=== PATIENT | female | born 1970 | race Hispanic/Latino ===

== ENCOUNTER 2017-01-21 13:56 | Emergency (ER) | payer MEDICARE, MEDICAID ==
[2017-01-21 14:11] VITALS: BMI 21.2
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
[2017-01-21 15:04] LABS: BASO % 0.3 % (0.0-2.0); EOS % 0.2 % (0.0-4.0); HEMATOCRIT 36.6 % (34.0-47.0); LYMPH # 1.5 K/uL (1.0-4.3); LYMPH % 20.5 % (20.0-40.0); MEAN CELL VOLUME 94.5 fL (81.0-99.0); MEAN CORPUSCULAR HEMOGLOBIN 33.4 pg (27.0-31.0); MEAN CORPUSCULAR HGB CONC 35.3 g/dL (33.0-37.0); MEAN PLATELET VOLUME 8.5 fL (7.2-11.7); MONO # 0.8 K/uL (0.0-0.8); NRBC % 0.1 % (0.0-2.0); RED CELL DISTRIBUTION WIDTH 12.4 % (11.5-14.5); WHITE BLOOD COUNT 7.3 K/uL (4.8-10.8)
[2017-01-21 15:10] LABS: CHLORIDE 107 mmol/L (98-107); SODIUM 142 mmol/L (132-148)
[2017-01-21 15:12] LABS: ALB/GLOB RATIO 0.9 (1.0-2.1); ALKALINE PHOSPHATASE 88 U/L (38-126); AST/SGOT 31 U/L (14-36); BILIRUBIN,TOTAL 0.6 mg/dL (0.2-1.3); BLOOD UREA NITROGEN 16 mg/dL (7-17); CARBON DIOXIDE 18 mmol/L (22-30); GFR AFRICAN-AMERICAN > 60
[2017-01-21 15:13] LABS: ALCOHOL SERUM < 10 mg/dl (0-10); ALT/SGPT 33 U/L (9-52); CALCIUM 8.9 mg/dl (8.6-10.4); GLUCOSE,RANDOM 80 mg/dL (65-105)
[2017-01-21 16:22] LABS: RBC URINE 24 /hpf (0-3); URINE BACTERIA MANY (<OCC); URINE BILIRUBIN NEGATIVE (NEGATIVE); URINE BLOOD 1+ (NEGATIVE); URINE GLUCOSE (UA) NORMAL (Normal); URINE KETONE TRACE mg/dL (NEGATIVE); URINE LEUKOCYTE ESTERASE 3+ Leu/uL (Negative); URINE PROTEIN 1+ mg/dL (NEGATIVE); URINE UROBILINOGEN NORMAL mg/dL (0.2-1.0); WBC CLUMPS MANY /hpf; WBC URINE 1470 /hpf (0-5)
[2017-01-21 16:25] LABS: URINE COLOR YELLOW (YELLOW)
[2017-01-21] MEDS ORDERED: Potassium Chloride 20 mEq ER Tab PO STA (16:33)
[2017-01-21] MEDS ORDERED: Potassium Chloride 20 mEq ER Tab PO ONE (16:54)
[2017-01-21 18:05] VITALS: BP 100/70; PULSE 88; RESP 18; TEMP 98.7
[2017-01-21 18:08] VITALS: O2SAT 95
== END 2017-01-21 18:51 | disposition home or self-care (01) ==
LOC: C.ER 13:56
DX: F11.23 Opioid dependence with withdrawal (principal); E87.6 Hypokalemia
CPT/HCPCS: 80053; 81001; 84703; 85025; 99284; G0480